=== PATIENT | male | born 1975 | race Caucasian/White ===

== ENCOUNTER → 2016-08-24 | Day surgery (SDC) | payer BC ==
[~2016-08-24] VITALS: Ht 180.3 cm; Wt 88.5 kg
[~2016-08-24] MED LIST: /PANT40TA PO; BUPIVACAINE/EPIN 0.25% 30 ML VIAL As Ordered ONE; BUPIVACAINE/EPIN 0.25% 30 ML VIAL XX ONE; CIPR500T89 PO; ENTO3CAP5 PO; INFL10VL IV; ISOSULFAN BLUE(LYMPHAZURIN) 1% 50MG/5ML VIAL (Q9968) As Ordered ONE; ISOSULFAN BLUE(LYMPHAZURIN) 1% 50MG/5ML VIAL (Q9968) XX ONE; KETOROLAC 30 MG/ML VIAL (J1885) IV SCH; KETOROLAC 60 MG/2 ML VIAL (J1885) As Ordered ONE; LIDOCAINE 2% INJ 100 MG/5 ML SDV (FOR ANES.) As Ordered ONE; LIDOCAINE 5% (LIDODERM) PATCH TD ONE; LR 1,000 ML IV SCH; MAGN400C2 PO; MIDAZOLAM INJ 2 MG/2 ML VIAL (J2250) As Ordered ONE; MORPHINE 2 MG/ML 1ML SYRINGE IV PRN; NORCO, ANEXSIA 5/325MG TABLET (HYDROcodone/ACETAMINOPHEN) PO PRN; ONDANSETRON 4MG/2ML VIAL (J2405) As Ordered ONE; ONDANSETRON 4MG/2ML VIAL (J2405) IV PRN; PERCOCET 5MG/325MG TAB PO PRN; PROPOFOL 200 MG/20 ML VIAL As Ordered ONE; PROTPAK PO; ROCURONIUM BROMIDE 50 MG/5 ML VIAL As Ordered ONE; SUCCINYLCHOLINE 100 MG/5 ML SYRINGE (J0330) As Ordered ONE; SUGAMMADEX SODIUM 500 MG/5 ML VIAL (BRIDION) As Ordered ONE; VITA200016 PO; VITATAB11 PO; ceFAZolin SOD 1 GM in D5W MINI-BAG PLUS 50 ML IV ONE; dexameTHASONE 4 MG/ML 1ML VIAL (J1100) As Ordered ONE; ePHEDrine SULFATE 25 MG/5 ML(5MG/ML) SYRINGE As Ordered ONE; fentaNYL 100 MCG/2 ML INJECTION (J3010) As Ordered ONE; fentaNYL 100 MCG/2 ML INJECTION (J3010) IV PRN
--- NOTE | 2016-08-24 15:17 | REP ---
SENTINEL NODE LYMPHOSCINTIGRAPHY, LEFT POSTERIOR SHOULDER: HISTORY: Malignant melanoma. Excision. PROCEDURE: The patient was interviewed, and informed consent was obtained. After patient safety time-out was articulated and agreed to, a total of 1.08 mCi of technetium-99m filtered sulfur colloid is injected in four intradermal injections around the site of the recent skin biopsy in the left posterior shoulder. Injection was performed under aseptic precautions with topical anesthesia from Lidoderm patch and ethyl chloride spray. Immediate postinjection posterior flow and anterior flow images are acquired. 60 and 90 minutes static anterior and left lateral planar images are acquired with and without transmission source imaging. FINDINGS: The flow study demonstrates that the injected radiotracer is streaming laterally into the axilla. Planar images at 60 and 90 minutes demonstrate luna uptake in the left axilla. No other luna flow or uptake is appreciated. IMPRESSION: Cory node lymphoscintigraphy demonstrates flow into the axilla and luna uptake in the ipsilateral left axilla from the left posterior shoulder area injection. Findings were reviewed with Dr. Bell at the time of the study. Signed by Jasen Briscoe MD 08/24/2016 04:51 P
--- NOTE | 2016-08-24 17:16 | RO ---
DATE OF PROCEDURE: 08/24/2016 PREOPERATIVE DIAGNOSIS: 1. Melanoma left upper back. 2. Abnormal nevus right upper back. POSTOPERATIVE DIAGNOSIS: PROCEDURE: 1. Alpine node biopsy left axilla 2. Wide local excision of left upper back melanoma. 3. Excision of abnormal nevus right upper back (1 cm). SURGEON: Dr. Paul Bell LUNCHROOM MONITOR: Dr. Dawn INDICATIONS FOR LUNCHROOM MONITOR: Dr. Dawn provided retraction, exposure with the axillary/sentinel node biopsy. ANESTHESIA: General endotracheal anesthesia. ESTIMATED BLOOD LOSS: Minimal. FLUIDS: Crystalloid. DESCRIPTION OF PROCEDURE: The patient was brought to the operating room, was given general anesthesia. After adequate anesthesia and preoperative antibiotics were given, the patient was injected with methylene blue in the site of the melanoma on the left upper back, approximately 1-1/2 mL was injected into the site. Next, the patient was prepped and draped in the usual sterile fashion and using the needle probe, I was able to identify the hottest area in the axilla. There was one sentinel node appreciated on the preoperative scanning performed. In any case, a transverse incision was made in the left axilla with a skin knife. Electrocautery was used cut through dermis, underlying subcutaneous tissue down to the clavipectoral fascia, through the clavipectoral fascia and then using the needle probe to guide the dissection location, combination of blunt and sharp dissection as well as electrocautery was used to guide myself down to the hot lymph node. First, there was a lymph node that was easily visible that I was dissecting out. It was a non-hot lymph node with some axillary fat that was removed and sent to pathology but deeper and more superior was a hot lymph node that was 34,000 count with a minimal background count. However, there was an additional lymph node that was taken down that was approximately 2400 of 10 second count. In any case, both were removed with electrocautery as well as clips placed on the small vessels as well as lymphatics. This was copiously irrigated, the left axilla and the clavipectoral fascia was approximated with #3-0 Vicryl, #3-0 Vicryl was used to approximate dermis, #4-0 Vicryl was used to approximate the skin. Steri-Strips and dry sterile dressing was applied. The background site background count was minimal after both lymph nodes were removed. Next, the melanoma on the left upper back was removed with an elliptical incision. First, it was measured down to a centimeter circumferentially around this area and then using elliptical incision over this area, the lesion was somewhat angled up to the left shoulder and thus the lesion was removed with an elliptical incision with first a skin knife and electrocautery was used cut through dermis, underlying subcutaneous tissue, all the way down to the fascia. It was taken off the muscular fascia at this point. Electrocautery was used to provide hemostasis and then the incision was closed with a deep layer #2-0 Vicryl, #3-0 Vicryl was used to approximate the dermis, #4-0 Vicryl subcuticular was used to approximate the skin. Steri-Strips and dry sterile dressing was applied. Next, the abnormal nevus was removed with an elliptical incision. Electrocautery was used to provide hemostasis, and this was closed with a #3-0 Vicryl in the dermis and #4-0 Vicryl subcuticular. Steri-Strips and dry sterile dressing was applied. The patient was awakened, extubated, brought to the recovery room awake, alert and hemodynamically stable. Sponge and needle counts correct times two.
[2016-08-24 17:26] VITALS: BP 127/77
== END | disposition home or self-care (01) ==
LOC: M SDC 10:08
PROVIDERS: ATTEND Surgery
DX: C43.59 Malignant melanoma of other part of trunk (principal); D22.5 Melanocytic nevi of trunk; K51.90 Ulcerative colitis, unspecified, without complications; N52.9 Male erectile dysfunction, unspecified; K29.70 Gastritis, unspecified, without bleeding; G43.909 Migraine, unspecified, not intractable, without status migrainosus; Z79.899 Other long term (current) drug therapy
CPT/HCPCS: 11403; 11406; 38525; 88305; 88307; 88342; J0330; J0690; J1100; J1885; J2250; J2405; J3010; Q9968

== ENCOUNTER → 2017-01-18 | Outpatient (CLI) | payer BC ==
[~2017-01-18] MED LIST changes: -BUPIVACAINE/EPIN 0.25% 30 ML VIAL As Ordered ONE; -BUPIVACAINE/EPIN 0.25% 30 ML VIAL XX ONE; -ISOSULFAN BLUE(LYMPHAZURIN) 1% 50MG/5ML VIAL (Q9968) As Ordered ONE; -ISOSULFAN BLUE(LYMPHAZURIN) 1% 50MG/5ML VIAL (Q9968) XX ONE; -KETOROLAC 30 MG/ML VIAL (J1885) IV SCH; -KETOROLAC 60 MG/2 ML VIAL (J1885) As Ordered ONE; -LIDOCAINE 2% INJ 100 MG/5 ML SDV (FOR ANES.) As Ordered ONE; -LIDOCAINE 5% (LIDODERM) PATCH TD ONE; -LR 1,000 ML IV SCH; -MIDAZOLAM INJ 2 MG/2 ML VIAL (J2250) As Ordered ONE; -MORPHINE 2 MG/ML 1ML SYRINGE IV PRN; -NORCO, ANEXSIA 5/325MG TABLET (HYDROcodone/ACETAMINOPHEN) PO PRN; -ONDANSETRON 4MG/2ML VIAL (J2405) As Ordered ONE; -ONDANSETRON 4MG/2ML VIAL (J2405) IV PRN; -PERCOCET 5MG/325MG TAB PO PRN; -PROPOFOL 200 MG/20 ML VIAL As Ordered ONE; -ROCURONIUM BROMIDE 50 MG/5 ML VIAL As Ordered ONE; -SUCCINYLCHOLINE 100 MG/5 ML SYRINGE (J0330) As Ordered ONE; -SUGAMMADEX SODIUM 500 MG/5 ML VIAL (BRIDION) As Ordered ONE; -ceFAZolin SOD 1 GM in D5W MINI-BAG PLUS 50 ML IV ONE; -dexameTHASONE 4 MG/ML 1ML VIAL (J1100) As Ordered ONE; -ePHEDrine SULFATE 25 MG/5 ML(5MG/ML) SYRINGE As Ordered ONE; -fentaNYL 100 MCG/2 ML INJECTION (J3010) As Ordered ONE; -fentaNYL 100 MCG/2 ML INJECTION (J3010) IV PRN
[2017-01-18 08:00] LABS: MEAN CORPUSCULAR HEMOGLOBIN 31.7 pg (27.0-33.0); MEAN CORPUSCULAR HGB CONC 35.9 g/dl (32.0-36.5); MEAN CORPUSCULAR VOLUME 88.4 fl (80.0-96.0); RED CELL DISTRIBUTION WIDTH 12.9 % (11.5-14.5); WHITE BLOOD COUNT 5.2 K/mm3 (4.0-10.0)
[2017-01-18 08:23] LABS: ALBUMIN 3.7 GM/DL (3.2-5.2); ALKALINE PHOSPHATASE 69 U/L (45-117); ALT/SGPT 25 U/L (12-78); ANION GAP 6 MEQ/L (8-16); AST/SGOT 16 U/L (15-37); BILIRUBIN,TOTAL 0.5 MG/DL (0.2-1.0); BLOOD UREA NITROGEN 18 MG/DL (7-18); CALCIUM LEVEL 8.7 MG/DL (8.5-10.1); CARBON DIOXIDE LEVEL 30 MEQ/L (21-32); CHLORIDE LEVEL 103 MEQ/L (98-107); CREATININE FOR GFR 1.16 MG/DL (0.70-1.30); GLOMERULAR FILTRATION RATE > 60.0 (>60); GLUCOSE, FASTING 92 MG/DL (70-105); POTASSIUM SERUM 4.1 MEQ/L (3.5-5.1); SODIUM LEVEL 139 MEQ/L (136-145); TOTAL PROTEIN 7.4 GM/DL (6.4-8.2)
== END ==
LOC: M LAB 07:05
PROVIDERS: ATTEND Internal Medicine Gastroenterology
DX: K51.90 Ulcerative colitis, unspecified, without complications (principal)

== ENCOUNTER → 2017-07-20 | Outpatient (CLI) | payer BC ==
[~2017-07-20] MED LIST changes: +CIPR-249 PO
== END ==
LOC: M LAB 07:08
PROVIDERS: ATTEND Internal Medicine Gastroenterology
DX: K51.90 Ulcerative colitis, unspecified, without complications (principal); K91.850 Pouchitis; E55.9 Vitamin D deficiency, unspecified

== ENCOUNTER → 2019-05-27 | Outpatient (CLI) | payer BC ==
[~2019-05-27] MED LIST changes: -/PANT40TA PO; +BUDE3CAP PO; +D 50CAP3 PO; +DICY10CA13 PO; +ISOVUE-370 76% 100ML VIAL (Q9967) As Ordered ONE; +PENT500C PO; +PROT1TAB2 PO; +SILD50TA PO; +VITA500046 PO; +ZANT150T40 PO
--- NOTE | 2019-05-28 05:02 | REP ---
Clinical: Stage IA melanoma. Technique: Axial contrast enhanced images from the thoracic inlet to the upper abdomen using 100 ml Isovue 370 intravenous contrast material with coronal and sagittal re-formations. Comparison: 08/09/2016. Findings: Lung peña are relatively well aerated, symmetric and essentially clear. A small focal area of chronic change at the deep left upper lobe/lingula remains stable. No acute consolidation, significant nodule or mass lesion. No pleural effusion. No pneumothorax. Tracheobronchial tree is patent. Mediastinum demonstrates normal thoracic aorta, pulmonary vasculature and heart/pericardium. No adenopathy. Musculoskeletal structures appear intact without focal osseous abnormality. Upper abdomen demonstrates normal bilateral adrenal glands. Impression: No acute mediastinal or pleuroparenchymal process appreciated. Electronically Signed by Jj Solano MD 05/28/2019 04:53 A
== END ==
LOC: M RAD 08:41
PROVIDERS: ATTEND Nurse Practitioner Family
DX: C43.59 Malignant melanoma of other part of trunk (principal)
CPT/HCPCS: 71260; Q9967

== ENCOUNTER → 2019-10-14 | Outpatient (REF) | payer BC ==
[~2019-10-14] MED LIST changes: -ISOVUE-370 76% 100ML VIAL (Q9967) As Ordered ONE
== END ==
LOC: M LAB REF 16:19
PROVIDERS: ATTEND Family Medicine
DX: K50.018 Crohn's disease of small intestine with other complication (principal); R14.2 Eructation; K21.9 Gastro-esophageal reflux disease without esophagitis; R79.82 Elevated C-reactive protein (CRP)

== ENCOUNTER → 2020-04-13 | Outpatient (REF) | payer BC ==
[2020-04-15 08:44] LABS: LDL DIRECT 64 mg/dL (0-99)
== END ==
LOC: M LAB REF 11:12
PROVIDERS: ATTEND Family Medicine
DX: E78.00 Pure hypercholesterolemia, unspecified (principal)

== ENCOUNTER → 2020-04-13 | Outpatient (REF) | payer BC | LOC: M LAB REF 11:18 | PROVIDERS: ATTEND Family Medicine | DX: R79.82 Elevated C-reactive protein (CRP) (principal) ==

== ENCOUNTER → 2020-10-25 | Outpatient (REF) | payer BC | LOC: M LAB REF 17:59 | PROVIDERS: ATTEND Family Medicine | DX: M79.674 Pain in right toe(s) (principal) ==

== ENCOUNTER → 2021-10-25 | Outpatient (REF) | payer BC ==
[~2021-10-25] MED LIST changes: +STEL90IN SC; +VITALIQ27 MC
[2021-10-25 11:25] LABS: C REACTIVE PROTEIN QUANTITATIV < 0.30 MG/DL (0.00-0.30)
[2021-10-25 11:27] LABS: VITAMIN B12 LEVEL 382 PG/ML (247-911)
== END ==
LOC: M LAB REF 09:57
PROVIDERS: ATTEND Family Medicine
DX: M13.0 Polyarthritis, unspecified (principal); K50.00 Crohn's disease of small intestine without complications; K91.850 Pouchitis

== ENCOUNTER → 2021-10-25 | Outpatient (REF) | payer BC | LOC: M LAB REF 16:36 | PROVIDERS: ATTEND Family Medicine | DX: E78.5 Hyperlipidemia, unspecified (principal) ==

== ENCOUNTER 2022-07-08 07:08 | Inpatient (IN) | payer BC ==
[~2022-07-08] VITALS: Ht 180.3 cm; Wt 79.8 kg
[2022-07-08] MEDS ORDERED: ONDANSETRON 4MG 2ML VIAL IV ONE (07:25)
[2022-07-08] MEDS ORDERED: NS 1,000 ML IV ONE ×2 (07:30→08:45)
[2022-07-08 07:54] LABS: BASO # 0.1 10^3/uL (0.0-0.2); BASO % 0.7 % (0.0-1.0); EOS # 0.1 10^3/uL (0.0-0.5); EOS % 0.7 % (0.0-3.0); HEMATOCRIT 55.6 % (42.0-52.0); HEMOGLOBIN 19.7 g/dl (13.5-17.5); LYMPH # 0.7 10^3/uL (1.5-5.0); LYMPH % 10.1 % (24.0-44.0); MEAN CORPUSCULAR HEMOGLOBIN 30.7 pg (27.0-33.0); MEAN CORPUSCULAR HGB CONC 35.4 g/dl (32.0-36.5); MEAN CORPUSCULAR VOLUME 86.6 fl (80.0-96.0); MONO % 13.9 % (2.0-8.0); NEUTROPHILS # 5.3 10^3/uL (1.5-8.5); NEUTROPHILS % 74.3 % (36.0-66.0); PLATELET COUNT, AUTOMATED 246 10^3/uL (150-450); RED BLOOD COUNT 6.42 10^6/uL (4.30-6.10); WHITE BLOOD COUNT 7.1 10^3/uL (4.0-10.0)
[2022-07-08 08:14] LABS: ALBUMIN 5.4 G/DL (3.2-5.2); BILIRUBIN,DIRECT 0.3 MG/DL (<0.4); TOTAL PROTEIN 9.4 G/DL (5.7-8.2)
[2022-07-08] MEDS ORDERED: MORPHINE 4 MG/ML 1ML VIAL IV ONE (08:45)
[2022-07-08 09:48] LABS: RSV AMPLIFICATION NEGATIVE (NEGATIVE)
[2022-07-08] MEDS ORDERED: HOME MED LIST COMPLETE! XX SCH (10:00)
[2022-07-08] MEDS ORDERED: ONDANSETRON 4MG 2ML VIAL IV PRN (10:50)
[2022-07-08 11:56] LABS: ALBUMIN 4.2 G/DL (3.2-5.2); BILIRUBIN,TOTAL 0.7 MG/DL (0.3-1.2); CALCIUM LEVEL 8.6 MG/DL (8.5-10.1); CREATININE FOR GFR 1.4 MG/DL (0.70-1.30); GLOMERULAR FILTRATION RATE 57.8 (>60); POTASSIUM SERUM 3.9 MMOL/L (3.5-5.1); TOTAL PROTEIN 7.4 G/DL (5.7-8.2)
[2022-07-08 13:28] LABS: MAGNESIUM LEVEL 1.8 MG/DL (1.8-2.4)
[2022-07-08 13:45] VITALS: BP 137/84
[2022-07-08] MEDS ORDERED: methylPREDNISolone 40MG 1ML VIAL IV SCH (14:00)
[2022-07-08 14:35] VITALS: BP 146/90
[2022-07-08] MEDS ORDERED: MAG SULF 1GM/100ML (MAG RUN) 1 GM in IV 1 EA IV ONE (15:00)
[2022-07-08] MEDS: NS 1,000 ML IV SCH (15:01)
[2022-07-08] MEDS: HEPARIN SOD (PORCINE) 5000UNITS/ML 1ML VIAL/SYRINGE SC SCH ×2 (15:01→22:07)
[2022-07-08 20:00] VITALS: BP 144/91
[2022-07-08] MEDS ORDERED: diphenhydrAMINE 50MG/ML VIAL IV ONE (22:25)
[2022-07-09] MEDS: NS 1,000 ML IV SCH ×2 (05:17→13:30)
[2022-07-09] MEDS: HEPARIN SOD (PORCINE) 5000UNITS/ML 1ML VIAL/SYRINGE SC SCH ×3 (05:18→22:17)
[2022-07-09 05:52] VITALS: BP 140/89
[2022-07-09 06:15] LABS: MEAN CORPUSCULAR HEMOGLOBIN 30.7 pg (27.0-33.0); MEAN CORPUSCULAR HGB CONC 35.2 g/dl (32.0-36.5); MEAN CORPUSCULAR VOLUME 87.3 fl (80.0-96.0); PLATELET COUNT, AUTOMATED 192 10^3/uL (150-450); RED BLOOD COUNT 5.73 10^6/uL (4.30-6.10); WHITE BLOOD COUNT 5.9 10^3/uL (4.0-10.0)
[2022-07-09 06:26] LABS: HEMOGLOBIN 17.6 g/dl (13.5-17.5)
[2022-07-09 06:38] LABS: BLOOD UREA NITROGEN 35 MG/DL (9-23); CALCIUM LEVEL 9.4 MG/DL (8.5-10.1); CARBON DIOXIDE LEVEL 31 MMOL/L (20-31); CHLORIDE LEVEL 92 MMOL/L (98-107); CREATININE FOR GFR 1.14 MG/DL (0.70-1.30); GLOMERULAR FILTRATION RATE > 60.0 (>60); GLUCOSE, FASTING 116 MG/DL (60-100); SODIUM LEVEL 134 MMOL/L (136-145)
[2022-07-09 14:00] VITALS: BP 138/88
[2022-07-09 20:55] VITALS: BP 126/89
[2022-07-09] MEDS ORDERED: diphenhydrAMINE 50MG CAP PO PRN (21:10)
[2022-07-10 06:00] VITALS: BP 125/81
[2022-07-10] MEDS: NS 1,000 ML IV SCH (06:32)
[2022-07-10] MEDS: HEPARIN SOD (PORCINE) 5000UNITS/ML 1ML VIAL/SYRINGE SC SCH (06:33)
== END 2022-07-10 11:58 | disposition home or self-care (01) | DRG 247 ==
LOC: M ED 07:08 → M ED INP 10:24 → ENRESERV 12:04 → M MS5PR 13:40 → M MSPAV 14:20
PROVIDERS: ADMIT Internal Medicine; ATTEND Internal Medicine
DX: K56.609 Unspecified intestinal obstruction, unspecified as to partial versus complete obstruction (principal); N17.9 Acute kidney failure, unspecified; E87.1 Hypo-osmolality and hyponatremia; D75.1 Secondary polycythemia; K50.90 Crohn's disease, unspecified, without complications; Z90.49 Acquired absence of other specified parts of digestive tract; Z20.822 Contact with and (suspected) exposure to COVID-19; Z79.899 Other long term (current) drug therapy; Z93.3 Colostomy status; A09 Infectious gastroenteritis and colitis, unspecified; R74.8 Abnormal levels of other serum enzymes; E86.0 Dehydration

== ENCOUNTER → 2022-08-14 | Outpatient (REF) | LOC: M LABSMTC 10:38 | PROVIDERS: ATTEND Family Medicine | DX: Z11.52 Encounter for screening for COVID-19 (principal) ==

== ENCOUNTER → 2024-01-08 | Outpatient (REF) | payer BC ==
[~2024-01-08] MED LIST changes: +DICY-61 PO; -DICY10CA13 PO
== END ==
LOC: M LAB REF 12:49
PROVIDERS: ATTEND Family Medicine
DX: K50.00 Crohn's disease of small intestine without complications (principal); E55.9 Vitamin D deficiency, unspecified; R19.7 Diarrhea, unspecified

== ENCOUNTER → 2024-05-12 | Outpatient (CLI) | payer BC | LOC: M RAD 14:25 | PROVIDERS: ATTEND Internal Medicine Hematology & Oncology | DX: D03.8 Melanoma in situ of other sites (principal) ==

== ENCOUNTER → 2024-07-15 | Outpatient (REF) | payer BC | LOC: M LAB REF 12:29 | PROVIDERS: ATTEND Family Medicine | DX: K50.018 Crohn's disease of small intestine with other complication (principal); K91.850 Pouchitis ==

== ENCOUNTER → 2024-10-09 | Outpatient (CLI) | payer BC ==
[2024-10-09 08:17] LABS: HEMATOCRIT 43.7 % (42.0-52.0); HEMOGLOBIN 15.1 g/dl (13.5-17.5); MEAN CORPUSCULAR HEMOGLOBIN 30.6 pg (27.0-33.0); MEAN CORPUSCULAR HGB CONC 34.6 g/dl (32.0-36.5); MEAN CORPUSCULAR VOLUME 88.5 fl (80.0-96.0); PLATELET COUNT, AUTOMATED 152 10^3/uL (150-450); RED BLOOD COUNT 4.94 10^6/uL (4.30-6.10); WHITE BLOOD COUNT 6.8 10^3/uL (4.0-10.0)
[2024-10-09 08:23] LABS: ERYTHROCYTE SEDIMENTATION RATE 13 mm/hr (0-15)
[2024-10-09 08:49] LABS: ALBUMIN 3.6 G/DL (3.2-5.2); ALKALINE PHOSPHATASE 67 U/L (40-129); ALT/SGPT 26 U/L (7.0-40); AST/SGOT 17 U/L (<34); BILIRUBIN,TOTAL 0.4 MG/DL (0.3-1.2); BLOOD UREA NITROGEN 21 MG/DL (9-23); C REACTIVE PROTEIN QUANTITATIV < 0.50 MG/DL (<1.0); CALCIUM LEVEL 9.3 MG/DL (8.5-10.1); CARBON DIOXIDE LEVEL 28 MMOL/L (20-31); CHLORIDE LEVEL 106 MMOL/L (98-107); CREATININE FOR GFR 1.05 MG/DL (0.70-1.30); GLOMERULAR FILTRATION RATE > 60.0 (>60); GLUCOSE, FASTING 95 MG/DL (60-100); POTASSIUM SERUM 4.9 MMOL/L (3.5-5.1); SODIUM LEVEL 142 MMOL/L (136-145); TOTAL PROTEIN 6.9 G/DL (5.7-8.2)
== END ==
LOC: M LAB 07:31
PROVIDERS: ATTEND Internal Medicine Gastroenterology
DX: K50.00 Crohn's disease of small intestine without complications (principal); R19.7 Diarrhea, unspecified; K91.850 Pouchitis; K21.9 Gastro-esophageal reflux disease without esophagitis

== ENCOUNTER → 2024-12-01 | Outpatient (REF) ==
[2024-12-01 09:19] LABS: SOFIA COVID ANTIGEN NEGATIVE (NEGATIVE)
== END ==
LOC: M EMP 08:53
PROVIDERS: ATTEND Family Medicine
DX: Z01.89 Encounter for other specified special examinations (principal)

== ENCOUNTER 2025-08-03 13:08 | Emergency (ER) | payer BC ==
[~2025-08-03] VITALS: Ht 180.3 cm; Wt 84.1 kg
[2025-08-03] MEDS: KETOROLAC 30 MG/ML 1 ML VIAL IV ONE (16:23)
[2025-08-03] MEDS: ACETAMINOPHEN *IV* 1,000 MG in IV 1 EA IV ONE (16:59)
[2025-08-03] MEDS: METHOCARBAMOL 1,000 MG/10 ML VIAL IV ONE (16:59)
[2025-08-03 18:45] VITALS: BP 126/64; TEMP 97.2; O2SAT 97
[2025-08-03] MEDS ORDERED: METH-1165 PO (19:00)
== END 2025-08-03 19:09 | disposition home or self-care (01) ==
LOC: M ED 13:08
DX: M54.50 Low back pain, unspecified (principal); Z87.19 Personal history of other diseases of the digestive system; Z79.899 Other long term (current) drug therapy
CPT/HCPCS: 72131; 93005; 96365; 96375; 99284; J0134; J1885; J2800